=== PATIENT | female | born 1995 | race Caucasian/White ===

== ENCOUNTER 2024-05-20 12:07 | Emergency (ER) | payer SELFPAY ==
[2024-05-20 13:24] VITALS: BP 131/82; PULSE 64; RESP 16; TEMP 36.7; O2SAT 98; BMI 23.6
--- NOTE | 2024-05-20 14:04 | EDNOTE_ITS ---
ED Ear RME/HPI General Chief complaint: Ear Stated complaint: RIGHT EARDRUM PAIN X LAST NIGHT Time Seen by Provider: 05/20/24 13:33 Arrival date/time: 05/20/24 12:07 Limitations: no limitations RME / HPI RME / HPI Narrative: 28-year-old female with history of URI last week. States today sneezed so hard that her ear hurt. When she sneezed again it hurt again it reminded her of when she perforated her eardrum. Has been very concerned that her right ear is hurting and feels muffled. History of recurrent ear infections as a child states not too often but they were always bad. No fever. No vomiting. No diarrhea. Was coughing last week but has subsided this week. Multiple sick exposures at home Related Data Previous Rx's ?Medication ?Instructions ?Recorded amoxicillin 500 mg tablet 500 mg PO TID 10 days #30 ta bs 05/20/24 pseudoephedrine HCl 30 mg tablet 30 mg PO Q12HR #14 ta bs 05/20/24 (Sudafed) Allergies Allergy/AdvReac Type Severity Reaction Status Date / Time No Known Allergies Allergy Verified 05/20/24 12:11 Review of Systems Review of Systems Systems Reviewed: All systems reviewed, normal except as documented Constitutional Constitutional: Denies fever(s) ENT Ears, Nose, Mouth, and Throat: Reports as per HPI ED Exam General Limitations: Present no limitations General appearance: Present alert and in no apparent distress Eye Eye exam: Present normal appearance, PERRL and EOMI ENT ENT exam: Present mucous membranes moist and other (Erythema to tonsils no exudates, rhinorrhea; right TM with erythema no perforation, left TM within normal limits) Respiratory Respiratory exam: Present normal lung sounds bilaterally Cardiovascular Cardiovascular exam: Present regular rate, normal rhythm and normal heart sounds Abdominal Exam Abdominal exam: Present soft and normal bowel sounds Extremities Exam Extremities exam: Present normal inspection and full ROM Back Exam Back exam: Present normal inspection and full ROM Psychiatric Psychiatric exam: Present normal affect and normal mood Skin Skin exam: Present warm, dry, intact and normal color Course Quality Measures none Vital Signs Vital signs: Vital Signs Temperature 98.1 F 05/20/24 13:24 Pulse Rate 64 05/20/24 13:24 Respiratory Rate 16 05/20/24 13:24 Blood Pressure 131/82 H 05/20/24 13:24 Pulse Oximetry (%) 98 05/20/24 13:24 Oxygen Delivery Method Room Air 05/20/24 13:24 Ear Patient data External records reviewed:: [facility] previous records Clinical information provided by:: patient Social determinants that could affect healthcare access:: other (specify) (No PCP appointment and we can) Patient has the following chronic illnesses:: History of recurrent infections How is presenting disease/condition affected by chronic disease/condition?: exacerbated by Evaluation data The following diagnostics were reviewed and interpreted by me:: other (specify) (None) Lab and/or radiology exams considered but not ordered:: Considered swabbing for COVID flu and strep patient opted against Interpretation Summary: Diagnosis of clinical exam declined swabs today Medications / Prescriptions Medications or Prescriptions considered but not ordered:: All medications considered were given Medication administrations:: No medications given in house Consultations Consultation(s) initiated? (list below): No Diagnosis Ear Differential Diagnosis: otitis externa, otitis media, foreign body in ear, ruptured TM and cerumen impaction Most likely diagnosis given after review of the tests above:: Right otitis media Admission Indicated Admission indicated?: not indicated Admission Request Was there a request for admission?: No Disposition Plan Disposition Plan: Discharge Discharge Attestation Discharge Attestation: The patient and all family members were given an opportunity to ask questions and understood the discharge instructions. Discharge instructions specifically effects, indications for sooner follow up or return to the emergency department, and the expected course of current diagnosis. Patient condition: Stable Discharge Plan Plan Patient Disposition: HOME (Self Care) Disposition Comment: Follow-up with PCP return to ER symptoms worsen Prescriptions/Referrals Prescriptions/Med Rec: New pseudoephedrine HCl [Sudafed] 30 mg tablet 30 mg PO Q12HR Qty: 14 0RF amoxicillin 500 mg tablet 500 mg PO TID 10 Days Qty: 30 0RF Problem List Clinical Impression: Otitis media Patient/Caregiver Discharge Instructions Education Materials: ED Otitis Media Antibiotic ... Print Language: Bulgarian Stand Alone Forms: Ramya Award Info., Patient Portal Info Letter PA/DOLL WIGS HACKLER Supervising Physician PA/DOLL WIGS HACKLER Supervising Physician: Dr Ding
== END 2024-05-20 14:23 | disposition home or self-care (01) ==
LOC: SERX 14:15
PROVIDERS: Emergency Provider Emergency Medicine
DX: H66.91 Otitis media, unspecified, right ear (principal)
CPT/HCPCS: 99281

== ENCOUNTER 2024-07-23 10:00 | Emergency (ER) | payer MEDICAID, SELFPAY ==
[2024-07-23 10:01] VITALS: BMI 23.1
[2024-07-23 10:28] VITALS: BMI 22.6
[2024-07-23 10:29] VITALS: BP 112/66; PULSE 60; RESP 18; TEMP 36.7; O2SAT 98
--- NOTE | 2024-07-23 10:37 | PD.EDRME ---
Rapid Medical Screening Exam RME Arrival date/time: 07/23/24 10:00 This is a case of 28-year-old female who came into the emergency room due to anxiety panic attack patient stated that he has history of anxiety in the past which was relieved by rest due to worsening of the symptoms this patient decided to start consult here in the emergency room denies any hallucination denies any suicidal nor homicidal ideation Chief Complaint: Anxiety Time Seen by Provider: 07/23/24 10:32 Vital signs: Vital Signs Temperature 98.0 F 07/23/24 10:29 Pulse Rate 60 07/23/24 10:29 Respiratory Rate 18 07/23/24 10:29 Blood Pressure 112/66 07/23/24 10:29 Pulse Oximetry (%) 98 07/23/24 10:29 Oxygen Delivery Method Room Air 07/23/24 10:29
[2024-07-23] MEDS: LORazepam 2 MG/ML VIAL 1 MG IM (10:43)
[2024-07-23 11:05] LABS: Basophils % (Auto) 1 % (0-2.5); Eosinophils % (Auto) 0 % (0-10); Hematocrit 37.4 % (36.0-46.0); Hemoglobin 12.8 g/dL (12.0-16.0); Immature Granulocytes % (Auto) 0 % (0-0); Immature Granulocytes Auto 0.02 Thou/mm3 (0.00-0.00); Lymphocytes # (Auto) 1.3 Thou/mm3 (1.0-4.8); Lymphocytes % (Auto) 15 % (10-50); Mean Corpuscular HGB Conc 34.2 g/dl (31.0-37.0); Mean Corpuscular Hemoglobin 27.4 pg (25.0-35.0); Mean Corpuscular Volume 80 fL (80-100); Monocytes # (Auto) 0.5 Thou/mm3 (0.0-0.8); Monocytes % (Auto) 6 % (0-12); Neutrophils # (Auto) 6.6 Thou/mm3 (1.8-7.7); Neutrophils % (Auto) 78 % (37-80); Nucleated Red Blood Cell % 0 /100 WBC (0); Platelet Count 335 Thou/mm3 (140-440); RDW Standard Deviation 40.4 fL (36.4-46.3); Red Blood Count 4.67 Miln/mm3 (4.00-5.20); White Blood Count 8.4 Thou/mm3 (3.6-11.0)
[2024-07-23 11:15] LABS: Alanine Aminotransferase 16 U/L (10-49); Albumin/Globulin Ratio 1.9 (1.2-2.2); Alkaline Phosphatase 55 U/L (46-116); Anion Gap 11 (7-16); BUN/Creatinine Ratio 8 Ratio (12-20); Bilirubin,Total 1.1 mg/dL (0.3-1.2); Blood Urea Nitrogen 8 mg/dL (9-23); Calcium 10.2 mg/dL (8.3-10.6); Calcium (Corrected) 10.2 mg/dL (8.5-10.1); Carbon Dioxide 23.9 mMol/L (20.0-31.0); Chloride 106 mMol/L (98-107); Globulin 2.6 gm/dL (2.3-3.5); Glucose 107 mg/dL (74-106); Osmolality,Calculated 279 (275-295); Potassium 3.9 mMol/L (3.4-5.1); Sodium 141 mMol/L (136-145); Total Protein 7.6 gm/dL (5.7-8.2); eGFR > 60 See Note
[2024-07-23 11:41] LABS: HCG,Qualitative Serum Negative
[2024-07-23 11:56] LABS: Amphetamine/Methamp Scrn,U Negative (Negative); Barbiturate Screen,Urine Negative (Negative); Benzodiazepines Screen,Urine Negative (Negative); Benzoylecgonine Screen, Ur Negative (Negative); Fentanyl Screen,Urine Negative (Negative); Opiate Screen,Urine Negative (Negative); THC Screen,Urine Positive (Negative)
--- NOTE | 2024-07-23 12:35 | PD.EDANX ---
ED Anxiety RME/HPI General Chief Complaint: Anxiety Stated Complaint: PANIC ATTACK Time Seen by Provider: 07/23/24 10:32 Arrival date/time: 07/23/24 10:00 This is a case of 28-year-old female who came into the emergency room due to anxiety panic attack patient stated that he has history of anxiety in the past which was relieved by rest due to worsening of the symptoms this patient decided to start consult here in the emergency room denies any hallucination denies any suicidal nor homicidal ideation patient is also complaining of ear pain bilaterally no ear discharge no decreased hearing Limitations: no limitations RME / HPI RME / HPI narrative: 07/23/24 10:00 This is a case of 28-year-old female who came into the emergency room due to anxiety panic attack patient stated that he has history of anxiety in the past which was relieved by rest due to worsening of the symptoms this patient decided to start consult here in the emergency room denies any hallucination denies any suicidal nor homicidal ideation Related Data Previous Rx's ?Medication ?Instructions ?Recorded pseudoephedrine HCl 30 mg tablet 30 mg PO Q12HR #14 tabs 05/20/24 (Sudafed) amoxicillin 500 mg capsule 500 mg PO TID 10 days #30 caps 07/23/24 hydroxyzine pamoate 25 mg capsule 25 mg PO BID PRN As needed for 07/23/24 anxiety #10 caps ofloxacin 0.3 % ear drops 10 drp otic (ear) QDAY 7 days #10 07/23/24 mL Allergies Allergy/AdvReac Type Severity Reaction Status Date / Time No Known Allergies Allergy Verified 07/23/24 10:03 Review of Systems Review of Systems Systems Reviewed: All systems reviewed, normal except as documented Constitutional Constitutional: Reports system reviewed and no additional complaints, except as documented ENT Ears, Nose, Mouth, and Throat: Reports system reviewed and no additional complaints, except as documented, Denies dizziness, Denies ear discharge, Reports otalgia, Denies nasal congestion, Denies nasal discharge, Denies nose pain, Denies post nasal drip and Denies sinus pain Cardiovascular Cardiovascular: Reports system reviewed and no additional complaints, except as documented and Reports as per HPI Respiratory Respiratory: Reports system reviewed and no additional complaints, except as documented and Reports as per HPI Neurologic Neurologic: Reports system reviewed and no additional complaints, except as documented, Reports as per HPI, Denies dizziness and Denies memory loss Psychiatric Psychiatric: Reports system reviewed and no additional complaints, except as documented, Reports as per HPI, Reports anxiety, Denies depression, Denies homicidal ideation, Denies hopelessness, Denies irritability, Denies memory loss, Denies mood swings, Reports panic attacks, Denies suicidal ideation, Denies tactile hallucinations and Denies visual hallucinations Past Medical History Social History SMOKING STATUS: Current every day smoker ED Exam General Limitations: Present no limitations General appearance: Present alert and in no apparent distress Head Head exam: Present atraumatic Eye Eye exam: Present normal appearance, PERRL and EOMI ENT ENT exam: Present normal exam, normal oropharynx and mucous membranes moist Expanded ENT Exam TM/Canal exam: Bilateral TM: erythema, bulging (Noted bulging tympanic membranes retracted and red but not perforated), canal discharge and canal tenderness (Noted mild tenderness on the ear canal with ear discharge bilaterally no foreign body no mastoid tenderness) Nasal speculum exam: Bilateral: normal Mouth exam: Present normal external inspection Teeth exam: Present normal inspection Throat exam: Present normal inspection Neck Neck exam: Present normal inspection, full ROM and trachea midline; Absent tenderness, meningismus, lymphadenopathy or thyromegaly Chest Chest inspection: Present normal inspection and symmetric chest wall rise Respiratory Respiratory exam: Present normal lung sounds bilaterally; Absent respiratory distress, wheezes, stridor, accessory muscle use or prolonged expiratory phase Cardiovascular Cardiovascular exam: Present regular rate, normal rhythm and normal heart sounds; Absent systolic murmur or diastolic murmur Abdominal Exam Abdominal exam: Present soft and normal bowel sounds Extremities Exam Extremities exam: Present normal inspection and full ROM Back Exam Back exam: Present normal inspection and full ROM Neurological Exam Neurological exam: Present alert, oriented X3, CN II-XII intact, normal gait and reflexes normal; Absent motor sensory deficit Psychiatric Psychiatric exam: Present normal affect, normal mood and anxious; Absent depressed, agitated, flat affect, manic, homicidal ideation or suicidal ideation Skin Skin exam: Present warm, dry, intact and normal color Course Quality Measures none Orders Category Date Time Status CBC Stat Lab 07/23/24 10:49 Completed CMP [Comprehensive Metabolic Panel] Stat Lab 07/23/24 10:49 Completed Drug Screen,Urine Stat Lab 07/23/24 10:55 Completed HCG,Qualitative Serum Stat Lab 07/23/24 10:49 Completed LORazepam [Ativan Inj] Med 07/23/24 10:36 Discontinued 1 mg IM X1 ONE Vital Signs Vital signs: Vital Signs Temperature 98.0 F 07/23/24 10:29 Pulse Rate 60 07/23/24 10:29 Respiratory Rate 18 07/23/24 10:29 Blood Pressure 112/66 07/23/24 10:29 Pulse Oximetry (%) 98 07/23/24 10:29 Oxygen Delivery Method Room Air 07/23/24 10:29 oxygen saturation 98% in room air normal Anxiety MDM Narrative MDM Narrative: This is a case of 28-year-old female who came into the emergency room due to anxiety panic attack patient stated that he has history of anxiety in the past which was relieved by rest due to worsening of the symptoms this patient decided to start consult here in the emergency room denies any hallucination denies any suicidal nor homicidal ideation patient is also complaining of ear pain bilaterally no ear discharge no decreased hearing patient is awake alert oriented not in distress not toxic looking patient seems anxious but not depressed no homicidal no suicidal ideation no delusion no hallucination patient also noted to have bilateral ear canal discharge redness no swelling no mastoid tenderness tympanic membrane is retracted but not perforated the rest of the physical examination and mental exam were normal and unremarkable blood test showed no leukocytosis no anemia kidney and liver function is normal no electrolyte imbalance patient drug screen noted positive for marijuana thus I discussed it with the patient that she needs to stop taking the marijuana patient was given Ativan 1 mg here and the symptoms were completely resolved no anxiety patient request to be discharged at this point patient was advised to follow-up with PCP to be referred to psychiatry psychologist for anxiety patient was discharged with amoxicillin and ofloxacin for the otitis media at this point patient is stable to be discharged and understood very well the discharge instruction Patient was discharged with comfortable condition walking with stable gait. Patient verbalized no further complains explained diagnosis and answered patient question. Patient is comfortable with the proposed management plan including the need to follow up with his/her primary care physician and any specialist if applicable Discussed patient for any urgent condition or worsening sx, He/She needed to go to emergency room immediately or call 911. Patient acknowledge the responsibility to follow up as instructed and to monitor her/his symptoms. For any persistence of the symptoms for more than 3-5 days return precaution advised. Discussed the result of the test and was given printed discharge instruction Patient data External records reviewed:: [facility] previous records Clinical information provided by:: patient Social determinants that could affect healthcare access:: none Patient has the following chronic illnesses:: None How is presenting disease/condition affected by chronic disease/condition?: no chronic disease Evaluation data The following diagnostics were reviewed and interpreted by me:: other (specify) Lab and/or radiology exams considered but not ordered:: Reviewed Interpretation Summary: Reviewed Medications / Prescriptions Medications or Prescriptions considered but not ordered:: Given Medication administrations:: Medication Administration History Discontinued Medications Lorazepam (Lorazepam 2 Mg/Ml Vial) 1 mg IM X1 ONE Stop: 07/23/24 10:37 Last Admin: 07/23/24 10:43 Dose: 1 mg Documented By: MF Consultations Consultation(s) initiated? (list below): No Diagnosis Differential diagnosis anxiety: panic disorder and acute anxiety Most likely diagnosis given after review of the tests above:: Acute anxiety Admission Indicated Admission indicated?: not indicated Explain why admission is indicated or not indicated:: Not indicated Admission Request Was there a request for admission?: No Admission Attestation Admission request attestation: Not indicated Disposition Plan Disposition Plan: Discharge Discharge Attestation Discharge Attestation: The patient and all family members were given an opportunity to ask questions and understood the discharge instructions. Discharge instructions specifically effects, indications for sooner follow up or return to the emergency department, and the expected course of current diagnosis. Patient condition: Stable Discharge Plan Plan Patient Disposition: HOME (Self Care) Prescriptions/Referrals Prescriptions/Med Rec: New hydroxyzine pamoate 25 mg capsule 25 mg PO BID PRN (Reason: As needed for anxiety) Qty: 10 0RF amoxicillin 500 mg capsule 500 mg PO TID 10 Days Qty: 30 0RF ofloxacin 0.3 % drops 10 drp otic (ear) QDAY 7 Days Qty: 10 0RF No Action pseudoephedrine HCl [Sudafed] 30 mg tablet 30 mg PO Q12HR Qty: 14 0RF Referrals: No Primary/Family,Physician [Primary Care Provider] - In 1 week Problem List Clinical Impression: Acute anxiety, Otitis media Patient/Caregiver Discharge Instructions Education Materials: ED Anxiety Reaction, ED Otitis Media Antibiotic ... Additional Instructions: Follow-up with your primary care physician in 2 days for reevaluation and to be referred to psychiatry psychologist for further evaluation and treatment of your anxiety for any recurrence worsening symptoms or any emergent concern return to the emergency room immediately or call 911 increase water intake keep hydrated no Q-tips no cotton balls prevent water to enter both ears is advised Print Language: Welsh Stand Alone Forms: Ramya Award Info., Patient Portal Info Letter PA/FILM INSPECTOR Supervising Physician PA/FILM INSPECTOR Supervising Physician: dr ruffin
[2024-07-23 12:42] VITALS: BP 118/77; PULSE 78; RESP 18; TEMP 37.1; O2SAT 99
== END 2024-07-23 12:43 | disposition home or self-care (01) ==
PROVIDERS: Nurse Practitioner Family; Emergency Provider Family Medicine
DX: F41.9 Anxiety disorder, unspecified (principal); H66.93 Otitis media, unspecified, bilateral; F17.200 Nicotine dependence, unspecified, uncomplicated
CPT/HCPCS: 36415; 80053; 80307; 84703; 85025; 96372; 99283; J2060